=== PATIENT | female | born 1950 | race Caucasian/White ===

== ENCOUNTER 2017-02-01 10:04 | Emergency (ER) | payer MEDICARE ==
[2017-02-01 10:10] VITALS: BMI 29.2
[2017-02-01 10:14] VITALS: TEMP 98.6; O2SAT 100
[2017-02-01] MEDS ORDERED: TDAP Vaccine 0.5 mL Syr IM ONE (10:20)
--- NOTE | 2017-02-01 10:20 | ED PDOC ---
Arrival/HPI - General Time Seen by Provider: 02/01/17 10:06 Historian: Patient, Family - History of Present Illness Narrative History of Present Illness (Text): 02/01/17 10:20 66 y/o female, pmh including dm/eye blindness, last tetanus doesn't remember, c/ o rt. knee abrasion and lt. knee pain s/p tripped and fall on the rt. knee. Pt. was at a [employer] last night, didn't see the step clearly as it was dark, twisted the left knee and landed on the rt. knee, had pain yesterday and worsened this morning, refused pain meds at home and refused pain med here at the ER. Pt. stated that she has no head or neck injury, no back or abdominal injury, no rib or chest injury, stated that she feels well other [place], no nausea or vomiting, no fever or chills, no headache or night sweat, no other medical or psychological complaints. Past Medical History - Provider Review Nursing Documentation Reviewed: Yes - Infectious Disease Hx of Infectious Diseases: None - Cardiac Hx Cardiac Disorders: Yes Hx Hypertension: Yes - Pulmonary Hx Respiratory Disorders: No - Neurological Hx Neurological Disorder: No - HEENT Hx HEENT Disorder: Yes Hx Blind: Yes (L eye) - Renal Hx Renal Disorder: No - Endocrine/Metabolic Hx Endocrine Disorders: Yes Hx Diabetes Mellitus Type 2: Yes - Hematological/Oncological Hx Blood Disorders: No - Integumentary Hx Dermatological Disorder: No - Musculoskeletal/Rheumatological Hx Musculoskeletal Disorders: No - Gastrointestinal Hx Gastrointestinal Disorders: No - Genitourinary/Gynecological Hx Genitourinary Disorders: No - Psychiatric Hx Psychophysiologic Disorder: No Hx Substance Use: No - Surgical History Other/Comment: L eye surgery - Anesthesia Hx Anesthesia: Yes Hx Anesthesia Reactions: No Family/Social History - Physician Review Nursing Documentation Reviewed: Yes Family/Social History: Unknown Family HX Smoking Status: Never Smoked Hx Alcohol Use: No Hx Substance Use: No Allergies/Home Meds Allergies/Adverse Reactions: Allergies No Known Allergies Allergy (Verified 02/01/17 10:09) Home Medications: Home Meds Medication Instructions Recorded Confirmed Aspirin [Adult Low Dose Aspirin EC] 81 mg PO DAILY 02/01/17 02/01/17 MetFORMIN [glucoPHAGE] 1,000 mg PO DAILY 02/01/17 02/01/17 Review of Systems - Review of Systems Constitutional: absent: Fatigue, Fevers Eyes: absent: Vision Changes ENT: absent: Hearing Changes Respiratory: absent: SOB, Cough Cardiovascular: absent: Chest Pain Gastrointestinal: absent: Abdominal Pain, Nausea, Vomiting Musculoskeletal: Arthralgias. absent: Back Pain, Neck Pain, Joint Swelling, Myalgias Skin: Skin Lesions (abrasion). absent: Rash, Pruritis, Laceration, Abscess, Ulcer, Cellulitis Neurological: absent: Headache, Dizziness Physical Exam Vital Signs Reviewed: Yes Vital Signs Temp Pulse Resp BP Pulse Ox 02/01/17 10:05 98.6 F 81 17 117/73 100 Temperature: Afebrile Blood Pressure: Normal Pulse: Regular Respiratory Rate: Normal Appearance: Positive for: Well-Appearing, Non-Toxic, Comfortable Pain Distress: Mild Mental Status: Positive for: Alert and Oriented X 3 - Systems Exam Head: Present: Atraumatic, Normocephalic Pupils: Present: PERRL Extroacular Muscles: Present: EOMI Conjunctiva: Present: Normal Mouth: Present: Moist Mucous Membranes Neck: Present: Normal Range of Motion, Trachea Midline. No: MIDLINE TENDERNESS , Paraspinal Tenderness, Lymphadenopathy Respiratory/Chest: Present: Clear to Auscultation, Good Air Exchange. No: Respiratory Distress, Accessory Muscle Use, Wheezes, Decreased Breath Sounds, Rales, Retracting, Rhonchi, Tachypneic, Tender to Palpation Cardiovascular: Present: Regular Rate and Rhythm, Normal S1, S2. No: Murmurs Abdomen: Present: Normal Bowel Sounds. No: Tenderness, Distention, Peritoneal Signs, Rebound, Guarding Back: Present: Normal Inspection. No: CVA Tenderness, Midline Tenderness, Paraspinal Tenderness, Pain with Leg Raise Upper Extremity: Present: Normal Inspection, Normal ROM, NORMAL PULSES. No: Cyanosis, Edema, Deformity Lower Extremity: Present: Normal Inspection, Other (Bilateral knees: +ttp on the lateral aspect of the left knee with no swelling, rt. knee visible superficial healing abrasion approx. 2cm diameter on the anterior patellar region with no bony tenderness/swelling, negative ana luisa and medina signs, FROM without limitation, sensation intact, motor 5/5, +DPPT pulses, capillary refill< 2 seconds, neurovascular intact. ). No: Edema Neurological: Present: GCS=15, CN II-XII Intact, Speech Normal Skin: Present: Warm, Dry, Normal Color. No: Rashes Psychiatric: Present: Alert, Oriented x 3, Normal Insight, Normal Concentration Medical Decision Making ED Course and Treatment: 02/01/17 10:25 -Xrays -Tdap -Pt. refused pain medication -Oscar wrap, cane -Pt. has poor skills on using crutches despite multiple demonstration. -Observe and reassess 02/01/17 11:15 -Xrays show no fracture or dislocation. -I explained to the patient and the daughter that she will need MRI and orthopedic follow up. -Discharge home with celebrex, bacitracin , oscar wrap, cane, ice pack, follow up with your own pmd and orthopedic within 2 days, return to the ER for any new or worsening signs or symptoms. - RAD Interpretation Radiology Orders: 02/01/17 10:20 KNEES BILATERAL [RAD] Stat PROCEDURE: Bilateral Knee Radiographs. HISTORY: bilateral knee injury with lt. knee pain COMPARISON: None. FINDINGS: BONES: Right Knee: Normal. No fracture. Left Knee: Normal. No fracture. JOINTS: Right Knee: Normal. No osteoarthritis. Left knee: Normal. No osteoarthritis. SOFT TISSUES: Right Knee: Normal. Left Knee: Normal. JOINT EFFUSION: Right Knee: None. Left Knee: None. OTHER FINDINGS: None. IMPRESSION: Normal radiographs of the knees. Medical Staff Physician: Radiologist - Medication Orders Current Medication Orders: Discontinued Medications Tetanus/Reduced Diphtheria/Acell Pertussis (Boostrix Vaccine Inj) 0.5 ml IM .ONCE ONE Stop: 02/01/17 10:21 - PA / [employer] / Resident Statement MD/DO has reviewed & agrees with the documentation as recorded. Disposition/Present on Arrival - Present on Arrival Any Indicators Present on Arrival: No History of DVT/PE: No History of Uncontrolled Diabetes: No Urinary Catheter: No History of Decub. Ulcer: No History Surgical Site Infection Following: None - Disposition Have Diagnosis and Disposition been Completed?: Yes Diagnosis: Knee injury, Knee abrasion, Knee pain Disposition: HOME/ ROUTINE Disposition Time: 11:16 Patient Plan: Discharge Patient Problems: Current Active Problems Problem Status Onset Knee injury Acute Knee abrasion Acute Knee pain Acute Condition: GOOD Additional Instructions: -Discharge home with celebrex, bacitracin , oscar wrap, cane, ice pack, follow up with your own pmd and orthopedic within 2 days, return to the ER for any new or worsening signs or symptoms. Prescriptions: Bacitracin Ointment [Bacitracin] 1 appful TOP BID #15 g Celecoxib [CeleBREX] 200 mg PO DAILY PRN #14 cap PRN Reason: Other Referrals: Emily Garcia MD [Staff Provider] - Follow up with primary Forms: WORK NOTE
--- NOTE | 2017-02-01 11:14 | RAD ---
PROCEDURE: Bilateral Knee Radiographs. HISTORY: bilateral knee injury with lt. knee pain COMPARISON: None. FINDINGS: BONES: Right Knee: Normal. No fracture. Left Knee: Normal. No fracture. JOINTS: Right Knee: Normal. No osteoarthritis. Left knee: Normal. No osteoarthritis. SOFT TISSUES: Right Knee: Normal. Left Knee: Normal. JOINT EFFUSION: Right Knee: None. Left Knee: None. OTHER FINDINGS: None. IMPRESSION: Normal radiographs of the knees.
[2017-02-01 11:22] VITALS: BP 115/71; PULSE 79; RESP 18
== END 2017-02-01 11:41 | disposition home or self-care (01) ==
LOC: ED 10:04
DX: S80.211A Abrasion, right knee, initial encounter (principal); W01.0XXA Fall on same level from slipping, tripping and stumbling without subsequent striking against object, initial encounter; Y93.89 Activity, other specified; Y92.89 Other specified places as the place of occurrence of the external cause; M25.562 Pain in left knee; Z23 Encounter for immunization

== ENCOUNTER 2018-05-18 09:07 | Outpatient (CLI) | payer MEDICARE | END 2018-05-18 09:08 | disposition home or self-care (01) | LOC: RAD 09:07 ==